=== PATIENT | female | born 1970 | race American Indian/Alaskan Native ===

== ENCOUNTER 2016-09-28 17:14 | Emergency (ER) | payer MEDICAID ==
[2016-09-28] MEDS ORDERED: NACL 0.9% 1000 ML 1,000 ML IV ONE (17:27)
[2016-09-28] MEDS ORDERED: DILAUDID IV ONE ×2 (17:56→20:28)
[2016-09-28] MEDS ORDERED: ZOFRAN IV ONE ×2 (17:56→20:28)
[2016-09-28 18:19] LABS: Anion Gap 20 mmol/L; Blood Urea Nitrogen 9 mg/dL (7-17); Calcium 9.2 mg/dL (8.4-10.2); Carbon Dioxide 24 mmol/L (22-30); Chloride 98.3 mmol/L (98-107); Glucose 130 mg/dL (65-100); Potassium 3.6 mmol/L (3.6-5.0); Sodium 139 mmol/L (137-145)
[2016-09-28 18:34] LABS: Basophils % (Auto) 0.2 % (0.0-1.8); Mean Corpuscular HGB Conc 30 % (30-34); Platelet Count 366 K/mm3 (140-440); Red Blood Count 4.88 M/mm3 (3.65-5.03); Red Cell Distribution Width 17.5 % (13.2-15.2); White Blood Count 6.8 K/mm3 (4.5-11.0)
[2016-09-28 18:50] LABS: Hemoglobin 9.8 gm/dl (10.1-14.3)
[2016-09-28 18:51] LABS: Hematocrit 32.6 % (30.3-42.9); Mean Corpuscular Hemoglobin 20 pg (28-32); Mean Corpuscular Volume 67 fl (79-97)
--- NOTE | 2016-09-28 19:34 | Cat Scan Report ---
FINAL REPORT PROCEDURE: CT ABDOMEN PELVIS WO CON TECHNIQUE: Computerized axial tomography of the abdomen and pelvis was performed without intravenous contrast. This study is performed without intravascular contrast material and its sensitivity for abdominal and pelvic pathology, including neoplasms, inflammation, abscess, free fluid, thrombosis, arterial dissection and infarction, is reduced compared with a contrast enhanced study. HISTORY: abd pain COMPARISON: CT exam dated February 11, 2016 FINDINGS: Liver and spleen display no abnormalities. Gallbladder has been removed. Pancreas appears normal. The adrenal glands and abdominal aorta are normal in size. No renal abnormality is seen. Mild hypoventilatory changes are seen at the lung bases. Bladder appears normal. No free pelvic fluid is seen. Changes of colitis are seen in the transverse and descending colon. Findings are probably from infectious colitis. Appendix is not seen but no pericecal inflammation is seen. No small bowel dilation is seen. No adnexal masses are seen. IMPRESSION: Changes of colitis are seen in the transverse and descending colon. Infectious colitis would be the most likely etiology.
--- NOTE | 2016-09-28 20:16 | Emergency Department Report ---
HPI - General Chief Complaint: Nausea/Vomiting/Diarrhea Time Seen by Provider: 09/28/16 17:55 - HPI HPI: Nausea vomiting diarrhea 46-year-old -Malag[place] female, presented to the ED with right upper quadrant pain, nausea, vomiting, diarrhea for 2 days. The patient is not taking any medication for symptoms. Patient denies any fever or chills or night sweats. Patient with history of a high blood pressure, has been compliant with medications. ED Past Medical Hx - Past Medical History Previous Medical History?: Yes Hx Hypertension: Yes Hx Dementia: No Additional medical history: Hypothyroidism s/p iodine tx for hyperthyroidism. Crohns colitis. Iron deficiency anemia - Surgical History Hx Cholecystectomy: Yes Hx Appendectomy: Yes Additional Surgical History: hysterectomy. fibroid tumor and cyst removed - Social History Smoking Status: Never Smoker Substance Use Type: None - Medications Home Medications: Home Medications Medication Instructions Recorded Confirmed Last Taken Type Levothyroxine [Synthroid] 150 mcg PO QDAY 06/21/13 12/31/15 10/29/14 History amLODIPine [Norvasc] 5 mg PO HS 06/21/13 12/31/15 10/28/14 History Ferrous Sulfate [Feosol 325 MG tab] 325 mg PO BID #60 tablet 05/12/14 12/31/15 Unknown Rx Cyclobenzaprine [Flexeril] 10 mg PO TID PRN #15 tablet 12/31/15 Unknown Rx Ibuprofen [Motrin] 800 mg PO Q8HR PRN #15 tablet 12/31/15 Unknown Rx Lisinopril/Hydrochlorothiazide 1 tab PO QDAY 12/31/15 12/31/15 Unknown History [Zestoretic 20-25 mg] Loperamide [Imodium] 2 mg PO Q6HR PRN #20 capsule 02/11/16 Unknown Rx Ondansetron [Zofran Odt] 4 mg PO Q8HR #20 tab.rapdis 02/11/16 Unknown Rx Oxycodone HCl/Acetaminophen 1 each PO Q6HR PRN #15 tablet 02/11/16 Unknown Rx [Percocet 10/325 mg] ED Review of Systems ROS: Stated complaint: ABD PAIN Other details as noted in HPI Comment: All other systems reviewed and negative Cardiovascular: as per HPI Gastrointestinal: abdominal pain, nausea Physical Exam - Physical Exam Vital Signs: Vital Signs 09/28/16 09/28/1617 17:24 18:10 19:16 Temperature 98.5 F Pulse Rate 120 H 78 Respiratory 20 20 Rate Blood Pressure 137/76 Blood Pressure 94/49 [Left] O2 Sat by Pulse 98 98 Oximetry 09/28/16 19:19 Temperature Pulse Rate Respiratory 20 Rate Blood Pressure Blood Pressure [Left] O2 Sat by Pulse 98 Oximetry Physical Exam: Vital signs reviewed Gen. alert and oriented 3 in no distress Head atraumatic normocephalic Eyes PERR LA EOMI Chest regular rate and rhythm normal S1-S2 lungs clear bilaterally Abdomen soft nondistended Back no point tenderness paravertebral tenderness Neuro no focal deficit. Psych normal mood. ED Course Vital Signs 09/28/16 09/28/16 09/28/16 17:24 18:10 19:16 Temperature 98.5 F Pulse Rate 120 H 78 Respiratory 20 20 Rate Blood Pressure 137/76 Blood Pressure 94/49 [Left] O2 Sat by Pulse 98 98 Oximetry 09/28/16 19:19 Temperature Pulse Rate Respiratory 20 Rate Blood Pressure Blood Pressure [Left] O2 Sat by Pulse 98 Oximetry ED Medical Decision Making - Lab Data Result diagrams: 09/28/16 17:37 09/28/16 17:37 Critical care attestation.: If time is entered above; I have spent that time in minutes in the direct care of this critically ill patient, excluding procedure time. ED Disposition Clinical Impression: Colitis Disposition: DC-01 TO HOME OR SELFCARE Is pt being admited?: No Does the pt Need Aspirin: No Condition: Stable Referrals: PRIMARY CARE [Primary Care Provider] - 3-5 Days
[2016-09-28 20:48] LABS: Bacteria,Urine 1+ /HPF (Negative); Bilirubin,Urine NEG (Negative); Blood,Urine MOD (Negative); Ketones,Urine NEG (Negative); Leukocyte Esterase,Urine SM (Negative); Mucus,Urine FEW /HPF; Nitrite,Urine NEG (Negative); Protein,Urine <15 mg/dL mg/dL (Negative); Urobilinogen,Urine < 2.0 mg/dL (<2.0)
[2016-09-28] MEDS ORDERED: FLAGYL/NS 1000 MG-200 ML 1,000 MG in VIAFLEX EMPTY CONTAINER 0 ML IV SCH (21:00)
[2016-09-28] MEDS ORDERED: TORADOL IV ONE (22:43)
[2016-09-29 00:56] VITALS: BP 104/52
== END 2016-09-29 01:17 | disposition home or self-care (01) ==
LOC: ED 17:14
DX: K52.9 Noninfective gastroenteritis and colitis, unspecified (principal); I10 Essential (primary) hypertension; E03.9 Hypothyroidism, unspecified; D50.9 Iron deficiency anemia, unspecified
CPT/HCPCS: 36415; 74176; 80048; 81001; 81025; 82962; 85025; 96361; 96365; 96366; 96375; 96376; 99284; J1170; J1885; J2405; J7030

== ENCOUNTER 2016-11-22 17:40 | Emergency (ER) | payer MEDICAID ==
[2016-11-22 20:09] VITALS: BP 125/77
[2016-11-22 20:29] LABS: Basophils % (Auto) 0.5 % (0.0-1.8); Eosinophils % (Auto) 0.1 % (0.0-4.3); Hemoglobin 8.9 gm/dl (10.1-14.3); Mean Corpuscular HGB Conc 29 % (30-34); Platelet Count 376 K/mm3 (140-440); Red Blood Count 4.53 M/mm3 (3.65-5.03); Red Cell Distribution Width 17.8 % (13.2-15.2); White Blood Count 5.3 K/mm3 (4.5-11.0)
[2016-11-22 20:30] LABS: Hematocrit 30.5 % (30.3-42.9); Mean Corpuscular Hemoglobin 20 pg (28-32); Mean Corpuscular Volume 67 fl (79-97)
[2016-11-22 20:51] LABS: Alanine Aminotransferase 17 units/L (7-56); Albumin 4.2 g/dL (3.9-5); Albumin/Globulin Ratio 1.2 %; Alkaline Phosphatase 80 units/L (35-129); Anion Gap 19 mmol/L; Bilirubin,Total < 0.20 mg/dL (0.1-1.2); Blood Urea Nitrogen 8 mg/dL (7-17); Carbon Dioxide 23 mmol/L (22-30); Chloride 104.7 mmol/L (98-107); Glucose 80 mg/dL (65-100); Lipase 33 units/L (13-60); Potassium 4.2 mmol/L (3.6-5.0); Sodium 142 mmol/L (137-145); Total Protein 7.8 g/dL (6.3-8.2)
[2016-11-22 21:52] LABS: Bilirubin,Urine NEG (Negative); Blood,Urine NEG (Negative); Ketones,Urine NEG (Negative); Leukocyte Esterase,Urine MOD (Negative); Mucus,Urine FEW /HPF; Nitrite,Urine NEG (Negative); Protein,Urine <15 mg/dL mg/dL (Negative); Urobilinogen,Urine < 2.0 mg/dL (<2.0)
== END 2016-11-22 20:22 | disposition left against medical advice (07) ==
LOC: ED 17:40
DX: R42 Dizziness and giddiness (principal); R10.9 Unspecified abdominal pain; Z53.21 Procedure and treatment not carried out due to patient leaving prior to being seen by health care provider
CPT/HCPCS: 36415; 80053; 81001; 83690; 85025

== ENCOUNTER 2016-11-24 11:46 | Emergency (ER) | payer MEDICAID ==
[2016-11-24 13:14] LABS: Bilirubin,Urine NEG (Negative); Blood,Urine NEG (Negative); Ketones,Urine NEG (Negative); Leukocyte Esterase,Urine TR (Negative); Mucus,Urine FEW /HPF; Nitrite,Urine NEG (Negative); Protein,Urine <15 mg/dL mg/dL (Negative); Urobilinogen,Urine < 2.0 mg/dL (<2.0); WBC,Urine < 1.0 /HPF (0.0-6.0)
[2016-11-24 13:44] LABS: Basophils % (Auto) 0.5 % (0.0-1.8); Hematocrit 29.7 % (30.3-42.9); Hemoglobin 8.9 gm/dl (10.1-14.3); Mean Corpuscular HGB Conc 30 % (30-34); Platelet Count 353 K/mm3 (140-440); Red Cell Distribution Width 17.5 % (13.2-15.2)
[2016-11-24 13:48] LABS: Mean Corpuscular Hemoglobin 20 pg (28-32); Mean Corpuscular Volume 66 fl (79-97)
[2016-11-24 13:54] LABS: Alanine Aminotransferase 14 units/L (7-56); Albumin 3.9 g/dL (3.9-5); Alkaline Phosphatase 80 units/L (35-129); Anion Gap 12 mmol/L; BUN/Creatinine Ratio 8.57; Blood Urea Nitrogen 6 mg/dL (7-17); Carbon Dioxide 26 mmol/L (22-30); Glucose 88 mg/dL (65-100); Potassium 4.4 mmol/L (3.6-5.0); Sodium 139 mmol/L (137-145)
[2016-11-24 15:14] LABS: Lipase 31 units/L (13-60)
[2016-11-24] MEDS ORDERED: NACL 0.9% 1000 ML 1,000 ML IV ONE (15:34)
[2016-11-24] MEDS ORDERED: ZOFRAN IV ONE (15:35)
--- NOTE | 2016-11-24 15:37 | Emergency Department Report ---
ED Abdominal Pain HPI - General Chief Complaint: Abdominal Pain Stated Complaint: a/c abd pain chrones dz Time Seen by Provider: 11/24/16 15:30 Source: patient Mode of arrival: Stretcher Limitations: No Limitations - History of Present Illness MD Complaint: abdominal pain -: Gradual, month(s) Location: diffuse Radiation: none Migration to: no migration Severity: mild Severity scale (0 -10): 6 Quality: cramping Improves With: nothing Worsens With: nothing Associated Symptoms: nausea, vomiting, diarrhea. denies: fever, chills, constipation, dysuria, hematemesis, hematochezia, melena, hematuria, anorexia, syncope (no bloody stool. no n/v in er today) - Related Data Home Medications Medication Instructions Recorded Confirmed Last Taken Levothyroxine [Synthroid] 150 mcg PO QDAY 06/21/13 12/31/15 10/29/14 amLODIPine [Norvasc] 5 mg PO HS 06/21/13 12/31/15 10/28/14 Lisinopril/Hydrochlorothiazide 1 tab PO QDAY 12/31/15 12/31/15 Unknown [Zestoretic 20-25 mg] Previous Rx's Medication Instructions Recorded Last Taken Type Ferrous Sulfate [Feosol 325 MG tab] 325 mg PO BID #60 tablet 05/12/14 Unknown Rx Cyclobenzaprine [Flexeril] 10 mg PO TID PRN #15 tablet 12/31/15 Unknown Rx Ibuprofen [Motrin] 800 mg PO Q8HR PRN #15 tablet 12/31/15 Unknown Rx Loperamide [Imodium] 2 mg PO Q6HR PRN #20 capsule 02/11/16 Unknown Rx Ondansetron [Zofran Odt] 4 mg PO Q8HR #20 tab.rapdis 02/11/16 Unknown Rx Oxycodone HCl/Acetaminophen 1 each PO Q6HR PRN #15 tablet 02/11/16 Unknown Rx [Percocet 10/325 mg] Dicyclomine [Bentyl] 20 mg PO QID #60 tablet 09/28/16 Unknown Rx Promethazine HCl [Promethazine TAB] 12.5 mg PO Q4H PRN #30 tablet 09/28/16 Unknown Rx metroNIDAZOLE [Flagyl TAB] 500 mg PO Q8HR #30 tablet 07/22/17 Unknown Rx HYDROcodone/APAP 10-325 [[place] 1 each PO BID PRN #12 tablet 11/24/16 Unknown Rx 10/325] metroNIDAZOLE [Flagyl] 500 mg PO Q8HR #30 tablet 11/24/16 Unknown Rx Allergies Allergy/AdvReac Type Severity Reaction Status Date / Time No Known Allergies Allergy Verified 02/10/16 15:22 ED Review of Systems ROS: Stated complaint: ABDOMINAL PAIN Other details as noted in HPI Comment: Unobtainable due to pts medical conditions Constitutional: no symptoms reported, see HPI. denies: chills, diaphoresis, fever Eyes: as per HPI. denies: eye pain ENT: as per HPI. denies: ear pain, throat pain Respiratory: no symptoms reported, see HPI. denies: cough, orthopnea Cardiovascular: as per HPI. denies: chest pain, palpitations, dyspnea on exertion, orthopnea Endocrine: no symptoms reported, see HPI. denies: excessive sweating, flushing , intolerance to cold, intolerance to heat Gastrointestinal: as per HPI, abdominal pain, nausea, vomiting, diarrhea. denies: constipation, hematemesis, melena, hematochezia Genitourinary: as per HPI. denies: urgency, dysuria Musculoskeletal: as per HPI. denies: back pain Skin: as per HPI. denies: rash, lesions Neurological: as per HPI. denies: headache, weakness Psychiatric: as per HPI. denies: anxiety, depression Hematological/Lymphatic: as per HPI. denies: easy bleeding ED Past Medical Hx - Past Medical History Hx Hypertension: Yes Hx CVA: No Hx Heart Attack/AMI: No Hx Congestive Heart Failure: No Hx Diabetes: No Hx Deep Vein Thrombosis: No Hx Pulmonary Embolism: No Hx GERD: No Hx Liver Disease: No Hx Renal Disease: No Hx of Cancer: No Hx Sickle Cell Disease: No Hx Arthritis: No Hx Headaches / Migraines: No Hx Seizures: No Hx Kidney Stones: No Hx Psychiatric Treatment: No Hx Asthma: No Hx COPD: No Hx Dementia: No Hx HIV: No Additional medical history: Hypothyroidism s/p iodine tx for hyperthyroidism. Crohns colitis. Iron deficiency anemia - Surgical History Hx Cholecystectomy: Yes Hx Appendectomy: Yes Additional Surgical History: hysterectomy. fibroid tumor and cyst removed - Social History Smoking Status: Never Smoker Substance Use Type: None - Medications Home Medications: Home Medications Medication Instructions Recorded Confirmed Last Taken Type Levothyroxine [Synthroid] 150 mcg PO QDAY 06/21/13 12/31/15 10/29/14 History amLODIPine [Norvasc] 5 mg PO HS 06/21/13 12/31/15 10/28/14 History Ferrous Sulfate [Feosol 325 MG tab] 325 mg PO BID #60 tablet 05/12/14 12/31/15 Unknown Rx Cyclobenzaprine [Flexeril] 10 mg PO TID PRN #15 tablet 12/31/15 Unknown Rx Ibuprofen [Motrin] 800 mg PO Q8HR PRN #15 tablet 12/31/15 Unknown Rx Lisinopril/Hydrochlorothiazide 1 tab PO QDAY 12/31/15 12/31/15 Unknown History [Zestoretic 20-25 mg] Loperamide [Imodium] 2 mg PO Q6HR PRN #20 capsule 02/11/16 Unknown Rx Ondansetron [Zofran Odt] 4 mg PO Q8HR #20 tab.rapdis 02/11/16 Unknown Rx Oxycodone HCl/Acetaminophen 1 each PO Q6HR PRN #15 tablet 02/11/16 Unknown Rx [Percocet 10/325 mg] Dicyclomine [Bentyl] 20 mg PO QID #60 tablet 09/28/16 Unknown Rx Promethazine HCl [Promethazine TAB] 12.5 mg PO Q4H PRN #30 tablet 09/28/16 Unknown Rx metroNIDAZOLE [Flagyl TAB] 500 mg PO Q8HR #30 tablet 09/28/16 Unknown Rx HYDROcodone/APAP 10-325 [[place] 1 each PO BID PRN #12 tablet 11/24/16 Unknown Rx 10/325] metroNIDAZOLE [Flagyl] 500 mg PO Q8HR #30 tablet 11/24/16 Unknown Rx ED Physical Exam - General Limitations: No Limitations General appearance: alert - Head Head exam: Present: atraumatic - Eye Eye exam: Present: normal appearance Pupils: Present: normal accommodation - ENT ENT exam: Present: mucous membranes moist - Neck Neck exam: Present: normal inspection - Respiratory Respiratory exam: Present: normal lung sounds bilaterally - Cardiovascular Cardiovascular Exam: Present: regular rate - GI/Abdominal GI/Abdominal exam: Present: soft, normal bowel sounds. Absent: distended, tenderness, guarding, rebound, rigid, diminished bowel sounds, hyperactive bowel sounds, hypoactive bowel sounds, organomegaly, mass, bruit, pulsatile mass - Rectal Rectal exam: Present: deferred - Extremities Exam Extremities exam: Present: normal inspection - Back Exam Back exam: Present: normal inspection - Neurological Exam Neurological exam: Present: alert, oriented X3, CN II-XII intact, normal gait - Psychiatric Psychiatric exam: Present: normal affect, normal mood - Skin Skin exam: Present: warm, dry, intact ED Course Vital Signs 11/24/16 11/24/16 11/24/16 11:52 15:33 18:35 Temperature 98.8 F 98.5 F 98 F Pulse Rate 82 70 74 Respiratory 18 14 18 Rate Blood Pressure 134/78 Blood Pressure 145/85 132/76 [Left] O2 Sat by Pulse 100 97 100 Oximetry 11/24/16 20:05 Temperature Pulse Rate Respiratory 16 Rate Blood Pressure Blood Pressure [Left] O2 Sat by Pulse Oximetry - Reevaluation(s) Reevaluation #1: to er w a/c colitis did not follow up w gi p last er visit diarrhea no blood out of her meds vss dc home w gi follow up. ED Medical Decision Making - Lab Data Result diagrams: 11/24/16 13:03 11/24/16 13:03 - Medical Decision Making vss no fever non toxic non ill appearing no [facility] medicated dc home w flagyl and outpt follow up out of her pain meds - Differential Diagnosis ro infection abd Critical care attestation.: If time is entered above; I have spent that time in minutes in the direct care of this critically ill patient, excluding procedure time. ED Disposition Clinical Impression: Colitis, Crohn's disease (regional enteritis) Disposition: DC-01 TO HOME OR SELFCARE Is pt being admited?: No Does the pt Need Aspirin: No Condition: Stable Instructions: Abdominal Pain (ED) Additional Instructions: fluids meds per routine ER will not write for local [employer] narcs. please see you MD and GI follow up GI as instructed today. diet as tolerated Prescriptions: HYDROcodone/APAP 10-325 [[place] 10/325] 1 each PO BID PRN #12 tablet PRN Reason: Pain metroNIDAZOLE [Flagyl] 500 mg PO Q8HR #30 tablet Referrals: MICHAEL HARDEN JR, MD [Primary Care Provider] - 3-5 Days Time of Disposition: 19:49
[2016-11-24] MEDS ORDERED: FLAGYL PO ONE (16:49)
[2016-11-24] MEDS ORDERED: MORPHINE IV ONE (18:17)
[2016-11-24 18:36] VITALS: BP 132/76
[2016-11-24] MEDS ORDERED: TYLENOL PO ONE (19:57)
[2016-11-24] MEDS ORDERED: TYLENOL ONE (20:02)
== END 2016-11-24 20:56 | disposition home or self-care (01) ==
LOC: ED 11:46
DX: K52.9 Noninfective gastroenteritis and colitis, unspecified (principal); K50.90 Crohn's disease, unspecified, without complications; I10 Essential (primary) hypertension; E03.9 Hypothyroidism, unspecified; Z90.49 Acquired absence of other specified parts of digestive tract; Z90.710 Acquired absence of both cervix and uterus
CPT/HCPCS: 36415; 80053; 81001; 83690; 85025; 96361; 96374; 96375; 99284; J2270; J2405; J7030

== ENCOUNTER 2017-03-12 10:32 | Emergency (ER) | payer MEDICAID ==
[2017-03-12 12:01] VITALS: BP 110/67
[2017-03-12] MEDS ORDERED: BABY ASPIRIN ONE (13:18)
--- NOTE | 2017-03-12 16:32 | Emergency Department Report ---
ED Lower Extremity HPI - General Chief Complaint: Extremity Injury, Lower Stated Complaint: LEG/FOOT PAIN Time Seen by Provider: 03/12/17 15:01 Source: patient Mode of arrival: Ambulatory Limitations: No Limitations - History of Present Illness Initial Comments: This is a 46-year-old female nontoxic, well nourished in appearance, no acute signs of distress presents to the ED with c/o of chronic intermittent left leg pain and foot pain and swelling. Patient denies any trauma to the region. Patient stated she follow up with her primary care doctor and received prednisone and symptoms subsided. Patient denies any calf pain, calf tenderness , fever, chills, nausea, vomiting, headache, stiff neck, chest pain, shortness of breath, difficulty breathing. MD Complaint: leg injury, foot injury -: month(s) Severity: mild Severity scale (0 -10): 8 Improves With: nothing Worsens With: nothing Associated Symptoms: swelling, able to partially bear weight, ambulatory. denies: snap/pop sensation, numbness, tingling, unable to bear weight - Related Data Home Medications Medication Instructions Recorded Confirmed Last Taken Levothyroxine [Synthroid] 150 mcg PO QDAY 06/21/13 12/31/15 10/29/14 amLODIPine [Norvasc] 5 mg PO HS 06/21/13 12/31/15 10/28/14 Lisinopril/Hydrochlorothiazide 1 tab PO QDAY 12/31/15 12/31/15 Unknown [Zestoretic 20-25 mg] Previous Rx's Medication Instructions Recorded Last Taken Type Ferrous Sulfate [Feosol 325 MG tab] 325 mg PO BID #60 tablet 05/12/14 Unknown Rx Cyclobenzaprine [Flexeril] 10 mg PO TID PRN #15 tablet 12/31/15 Unknown Rx Ibuprofen [Motrin] 800 mg PO Q8HR PRN #15 tablet 12/31/15 Unknown Rx Loperamide [Imodium] 2 mg PO Q6HR PRN #20 capsule 02/11/16 Unknown Rx Ondansetron [Zofran Odt] 4 mg PO Q8HR #20 tab.rapdis 02/11/16 Unknown Rx Oxycodone HCl/Acetaminophen 1 each PO Q6HR PRN #15 tablet 02/11/16 Unknown Rx [Percocet 10/325 mg] Dicyclomine [Bentyl] 20 mg PO QID #60 tablet 09/28/16 Unknown Rx Promethazine HCl [Promethazine TAB] 12.5 mg PO Q4H PRN #30 tablet 09/28/16 Unknown Rx metroNIDAZOLE [Flagyl TAB] 500 mg PO Q8HR #30 tablet 09/28/16 Unknown Rx HYDROcodone/APAP 10-325 [[place] 1 each PO BID PRN #12 tablet 11/24/16 Unknown Rx 10/325] metroNIDAZOLE [Flagyl] 500 mg PO Q8HR #30 tablet 11/24/16 Unknown Rx Ibuprofen [Motrin] 600 mg PO Q8H PRN #30 tablet 03/12/17 Unknown Rx predniSONE [Deltasone] 40 mg PO QDAY #5 tab 03/12/17 Unknown Rx Allergies Allergy/AdvReac Type Severity Reaction Status Date / Time No Known Allergies Allergy Verified 02/10/16 15:22 ED Review of Systems ROS: Stated complaint: LEG/FOOT PAIN Other details as noted in HPI Constitutional: denies: chills, fever Eyes: denies: eye pain, eye discharge, vision change ENT: denies: ear pain, throat pain Respiratory: denies: cough, shortness of breath, wheezing Cardiovascular: denies: chest pain, palpitations Endocrine: no symptoms reported Gastrointestinal: denies: abdominal pain, nausea, diarrhea Genitourinary: denies: urgency, dysuria, discharge Musculoskeletal: denies: back pain, joint swelling, arthralgia Skin: denies: rash, lesions Neurological: denies: headache, weakness, paresthesias Psychiatric: denies: anxiety, depression Hematological/Lymphatic: denies: easy bleeding, easy bruising ED Past Medical Hx - Past Medical History Previous Medical History?: Yes Hx Hypertension: Yes Hx CVA: No Hx Heart Attack/AMI: No Hx Congestive Heart Failure: No Hx Diabetes: No Hx Deep Vein Thrombosis: No Hx Pulmonary Embolism: No Hx GERD: No Hx Liver Disease: No Hx Renal Disease: No Hx Sickle Cell Disease: No Hx Arthritis: No Hx Headaches / Migraines: No Hx Seizures: No Hx Kidney Stones: No Hx Psychiatric Treatment: No Hx Asthma: No Hx COPD: No Hx Dementia: No Hx HIV: No Additional medical history: Hypothyroidism s/p iodine tx for hyperthyroidism. Crohns colitis. Iron deficiency anemia - Surgical History Past Surgical History?: Yes Hx Cholecystectomy: Yes Hx Appendectomy: Yes Additional Surgical History: hysterectomy. fibroid tumor and cyst removed - Social History Smoking Status: Former Smoker Substance Use Type: Prescribed - Medications Home Medications: Home Medications Medication Instructions Recorded Confirmed Last Taken Type Levothyroxine [Synthroid] 150 mcg PO QDAY 06/21/13 12/31/15 10/29/14 History amLODIPine [Norvasc] 5 mg PO HS 06/21/13 12/31/15 10/28/14 History Ferrous Sulfate [Feosol 325 MG tab] 325 mg PO BID #60 tablet 05/12/14 12/31/15 Unknown Rx Cyclobenzaprine [Flexeril] 10 mg PO TID PRN #15 tablet 12/31/15 Unknown Rx Ibuprofen [Motrin] 800 mg PO Q8HR PRN #15 tablet 12/31/15 Unknown Rx Lisinopril/Hydrochlorothiazide 1 tab PO QDAY 12/31/15 12/31/15 Unknown History [Zestoretic 20-25 mg] Loperamide [Imodium] 2 mg PO Q6HR PRN #20 capsule 02/11/16 Unknown Rx Ondansetron [Zofran Odt] 4 mg PO Q8HR #20 tab.rapdis 02/11/16 Unknown Rx Oxycodone HCl/Acetaminophen 1 each PO Q6HR PRN #15 tablet 02/11/16 Unknown Rx [Percocet 10/325 mg] Dicyclomine [Bentyl] 20 mg PO QID #60 tablet 09/28/16 Unknown Rx Promethazine HCl [Promethazine TAB] 12.5 mg PO Q4H PRN #30 tablet 09/28/16 Unknown Rx metroNIDAZOLE [Flagyl TAB] 500 mg PO Q8HR #30 tablet 09/28/16 Unknown Rx HYDROcodone/APAP 10-325 [[place] 1 each PO BID PRN #12 tablet 11/24/16 Unknown Rx 10/325] metroNIDAZOLE [Flagyl] 500 mg PO Q8HR #30 tablet 11/24/16 Unknown Rx Ibuprofen [Motrin] 600 mg PO Q8H PRN #30 tablet 03/12/17 Unknown Rx predniSONE [Deltasone] 40 mg PO QDAY #5 tab 03/12/17 Unknown Rx ED Physical Exam - General Limitations: No Limitations General appearance: alert, in no apparent distress - Head Head exam: Present: atraumatic, normocephalic - Eye Eye exam: Present: normal appearance Pupils: Present: normal accommodation - ENT ENT exam: Present: normal exam, normal orophraynx, mucous membranes moist, TM's normal bilaterally, normal external ear exam - Neck Neck exam: Present: normal inspection, full ROM. Absent: tenderness, meningismus, lymphadenopathy, thyromegaly - Respiratory Respiratory exam: Present: normal lung sounds bilaterally. Absent: respiratory distress, wheezes, rales, rhonchi, stridor, chest wall tenderness, accessory muscle use, decreased breath sounds, prolonged expiratory - Cardiovascular Cardiovascular Exam: Present: regular rate, normal rhythm, normal heart sounds. Absent: bradycardia, tachycardia, irregular rhythm, systolic murmur, diastolic murmur, rubs, gallop - GI/Abdominal GI/Abdominal exam: Present: soft, normal bowel sounds. Absent: distended, tenderness, guarding, rebound, rigid, diminished bowel sounds - Extremities Exam Extremities exam: Present: normal inspection, full ROM, normal capillary refill. Absent: tenderness, pedal edema, joint swelling, calf tenderness - Expanded Lower Extremity Exam Left Hip exam: Present: normal inspection, full ROM, external rotation, internal rotation, pelvic stability. Absent: tenderness, swelling, abrasion, laceration , ecchymosis, deformity, crepidus, dislocation, erythema, shortening Upper Leg exam: Present: normal inspection, full ROM. Absent: tenderness, swelling, abrasion, laceration, ecchymosis, deformity, crepidus, dislocation, erythema Knee exam: Present: normal inspection, full ROM, full knee extension. Absent: tenderness, swelling, abrasion, laceration, ecchymosis, deformity, crepidus, dislocation, erythema, effusion, pain w/ pronation/supination, posterior draw sign, pain/laxity with valgus, pain/laxity with varus Lower Leg exam: Present: normal inspection, full ROM. Absent: tenderness, swelling, abrasion, laceration, ecchymosis, deformity, crepidus, dislocation, erythema, palpable cord, Peg's sign Ankle exam: Present: normal inspection, full ROM, tenderness, swelling. Absent : abrasion, laceration, ecchymosis, deformity, crepidus, dislocation, erythema, anterior draw sign Foot/Toe exam: Present: normal inspection, full ROM, tenderness, swelling. Absent: abrasion, laceration, ecchymosis, deformity, crepidus, dislocation, erythema, amputation, puncture wound, foreign body, calcaneal tenderness, tenderness at base of 5th metatarsal, nail avulsion, subungual hematoma Neuro vascular tendon exam: Present: no vascular compromise. Absent: pulse deficit, abnormal cap refill, motor deficit, sensory deficit, tendon deficit, extremity cold to touch, pallor, abnormal 2-point discrimination, foot drop, peroneal nerve deficit, significant pain with passive ROM of distal joint Gait: Positive: observed and limited by pain - Back Exam Back exam: Present: normal inspection, full ROM. Absent: tenderness, CVA tenderness (R), CVA tenderness (L), muscle spasm, paraspinal tenderness, vertebral tenderness, rash noted - Neurological Exam Neurological exam: Present: alert, oriented X3, CN II-XII intact, normal gait, reflexes normal - Psychiatric Psychiatric exam: Present: normal affect, normal mood - Skin Skin exam: Present: warm, dry, intact, normal color. Absent: rash ED Course Vital Signs 03/12/17 11:57 Temperature 98.6 F Pulse Rate 71 Respiratory 20 Rate Blood Pressure 110/67 O2 Sat by Pulse 98 Oximetry - Reevaluation(s) Reevaluation #1: 03/12/17 16:43 Patient is speaking in full sentences with no signs of distress noted. ED Lower Extremity MDM - Medical Decision Making This a 46-year-old female that presents with leg pain and left foot swelling. Patient is stable and was examined by me. Doppler has been obtained with a preliminary report negative for DVTs. I ordered an x-ray to rule out stress fracture but patient states she has to go home. Patient refused x-ray and she was be treated with prednisone as this helped her previously. I instructed her notified patient of my concerns that further evaluation the patient signed AMA and wanted to leave. Patient received prednisone and Solu-Medrol. Patient seen Motrin discharge. Patient signed AMA form. Patient was instructed Follow- up with a primary care doctor in 3-5 days or if symptoms worsen and continue return to emergency room as soon as possible. At time time of signing AMA form , the patient does not seem toxic or ill in appearance. No acute signs of distress noted. Patient agrees to the treatment plan of care. No further questions noted by the patient. Critical care attestation.: If time is entered above; I have spent that time in minutes in the direct care of this critically ill patient, excluding procedure time. ED Disposition Clinical Impression: Left leg pain, Foot swelling Disposition: LEFT AGAINST MED ADVICE Is pt being admited?: No Does the pt Need Aspirin: No Condition: Stable Instructions: Ibuprofen (By mouth), Prednisone (By mouth), RICE Therapy (ED) Additional Instructions: Follow-up with a primary care doctor in 3-5 days or if symptoms worsen and continue return to emergency room as soon as possible. Prescriptions: Ibuprofen [Motrin] 600 mg PO Q8H PRN #30 tablet PRN Reason: Pain predniSONE [Deltasone] 40 mg PO QDAY #5 tab Referrals: PRIMARY CAREMD [Primary Care Provider] - 3-5 Days HOLLIE REECE MD [Staff Physician] - 3-5 Days [facility] [Outside] - 3-5 Days [facility] [Outside] - 3-5 Days Forms: AMA Form
--- NOTE | 2017-03-13 08:41 | Vascular Lab Report ---
Left Lower Extremity Venous Duplex Study: Reason for Exam: Pain and swelling of the left lower extremity. Comments on the Right: A limited duplex study was done of the proximal veins of the right lower extremity. All veins visualized are freely compressible without evidence of internal echogenicity. Flow is spontaneous and phasic throughout. No evidence of acute or chronic thrombus is seen in any of the vessels visualized. Comments on the Left: All veins visualized are freely compressible without evidence of internal echogenicity. Flow is spontaneous and phasic throughout. No evidence of acute or chronic thrombus is seen in any of the vessels visualized. There are soft tissue change in the left knee area most compatible with an effusion or Jernigan's cyst. Impression: No evidence of acute or chronic deep venous thrombosis in the left lower extremity.
== END 2017-03-12 16:46 | disposition left against medical advice (07) ==
LOC: ED 10:32
DX: M79.605 Pain in left leg (principal); M79.89 Other specified soft tissue disorders; I10 Essential (primary) hypertension; E05.90 Thyrotoxicosis, unspecified without thyrotoxic crisis or storm; Z87.891 Personal history of nicotine dependence
CPT/HCPCS: 93971; 96372; 99282; J2930

== ENCOUNTER 2017-06-26 00:59 | Emergency (ER) | payer MEDICAID ==
[2017-06-26 01:05] VITALS: BP 121/88
[2017-06-26 02:03] LABS: Hematocrit 28.9 % (30.3-42.9); Mean Corpuscular HGB Conc 31 % (30-34); Platelet Count 336 K/mm3 (140-440); Red Blood Count 4.48 M/mm3 (3.65-5.03)
[2017-06-26 02:05] LABS: Mean Corpuscular Hemoglobin 20 pg (28-32); Mean Corpuscular Volume 65 fl (79-97)
[2017-06-26 02:33] LABS: Alanine Aminotransferase 23 units/L (7-56); Albumin 3.9 g/dL (3.9-5); BUN/Creatinine Ratio 14; Blood Urea Nitrogen 14 mg/dL (7-17); Calcium 8.3 mg/dL (8.4-10.2); Hemolysis Index 6
[2017-06-26 03:03] LABS: Anisocytosis 2+; Basophils % (Manual) 0 % (0.0-1.8); Eosinophils % (Manual) 0 % (0.0-4.3); Hypochromasia 2+; Platelet Estimate Consistent w Auto; Total Cells Counted 100
[2017-06-26 03:38] LABS: Bacteria,Urine 1+ /HPF (Negative); Bilirubin,Urine NEG (Negative); Blood,Urine NEG (Negative); Color,Urine Yellow (Yellow); Hyaline Casts,Urine 4 /LPF; Mucus,Urine FEW /HPF; Protein,Urine <15 mg/dL mg/dL (Negative)
[2017-06-26] MEDS ORDERED: NACL 0.9% 1000 ML 1,000 ML IV ONE (07:04)
[2017-06-26] MEDS ORDERED: ZOFRAN IV ONE (07:04)
[2017-06-26] MEDS ORDERED: BENTYL IM ONE (07:08)
--- NOTE | 2017-06-26 07:10 | Emergency Department Report ---
ED Abdominal Pain HPI - General Chief Complaint: Abdominal Pain Stated Complaint: ABD PAIN Time Seen by Provider: 06/26/17 06:48 Source: patient Mode of arrival: Ambulatory Limitations: No Limitations - History of Present Illness Initial Comments: Patient with history of Crohn's she's had multiple surgeries including cholecystectomy and appendectomy and hysterectomy, patient is here with diffuse abdominal pain into the back she thinks it is worse with her movement not sure of his urinary related. She denies tearing pain denies any hypotension denies any nausea vomiting diarrhea denies any fever she says her Crohn's seems to be okay but is having back and abdominal pain past medical history is significant for Crohn's chronic iron deficiency anemia MD Complaint: abdominal pain, flank pain, other (back pain) -: days(s) Location: diffuse, R flank Radiation: back Migration to: no migration Severity: mild, moderate Quality: cramping, aching Consistency: intermittent Worsens With: nothing Associated Symptoms: denies other symptoms, dysuria. denies: nausea, vomiting, diarrhea, fever, chills, constipation, hematemesis, hematochezia, melena, hematuria, anorexia, syncope - Related Data Home Medications Medication Instructions Recorded Confirmed Last Taken Levothyroxine [Synthroid] 150 mcg PO QDAY 06/21/13 12/31/15 10/29/14 amLODIPine [Norvasc] 5 mg PO HS 06/21/13 12/31/15 10/28/14 Lisinopril/Hydrochlorothiazide 1 tab PO QDAY 12/31/15 12/31/15 Unknown [Zestoretic 20-25 mg] Previous Rx's Medication Instructions Recorded Last Taken Type Ferrous Sulfate [Feosol 325 MG tab] 325 mg PO BID #60 tablet 05/12/14 Unknown Rx Cyclobenzaprine [Flexeril] 10 mg PO TID PRN #15 tablet 12/31/15 Unknown Rx Ibuprofen [Motrin] 800 mg PO Q8HR PRN #15 tablet 12/31/15 Unknown Rx Loperamide [Imodium] 2 mg PO Q6HR PRN #20 capsule 02/11/16 Unknown Rx Ondansetron [Zofran Odt] 4 mg PO Q8HR #20 tab.rapdis 02/11/16 Unknown Rx Oxycodone HCl/Acetaminophen 1 each PO Q6HR PRN #15 tablet 02/11/16 Unknown Rx [Percocet 10/325 mg] Dicyclomine [Bentyl] 20 mg PO QID #60 tablet 09/28/16 Unknown Rx Promethazine HCl [Promethazine TAB] 12.5 mg PO Q4H PRN #30 tablet 09/28/16 Unknown Rx metroNIDAZOLE [Flagyl TAB] 500 mg PO Q8HR #30 tablet 09/28/16 Unknown Rx HYDROcodone/APAP 10-325 [Sherman 1 each PO BID PRN #12 tablet 11/24/16 Unknown Rx 10/325] metroNIDAZOLE [Flagyl] 500 mg PO Q8HR #30 tablet 11/24/16 Unknown Rx Ibuprofen [Motrin] 600 mg PO Q8H PRN #30 tablet 03/12/17 Unknown Rx predniSONE [Deltasone] 40 mg PO QDAY #5 tab 03/12/17 Unknown Rx Allergies Allergy/AdvReac Type Severity Reaction Status Date / Time No Known Allergies Allergy Verified 02/10/16 15:22 ED Review of Systems ROS: Stated complaint: ABD PAIN Other details as noted in HPI Comment: All other systems reviewed and negative Constitutional: denies: diaphoresis, fever, malaise ENT: denies: dental pain, hearing loss, epistaxis Respiratory: denies: shortness of breath, SOB with exertion, SOB at rest, stridor Cardiovascular: denies: chest pain, palpitations, dyspnea on exertion, orthopnea Gastrointestinal: abdominal pain. denies: diarrhea, constipation, hematemesis, melena, hematochezia Neurological: denies: headache, weakness, numbness, paresthesias, confusion, abnormal gait, vertigo ED Past Medical Hx - Past Medical History Previous Medical History?: Yes Hx Hypertension: Yes Hx CVA: No Hx Heart Attack/AMI: No Hx Congestive Heart Failure: No Hx Diabetes: No Hx Deep Vein Thrombosis: No Hx Pulmonary Embolism: No Hx GERD: No Hx Liver Disease: No Hx Renal Disease: No Hx Sickle Cell Disease: No Hx Arthritis: No Hx Headaches / Migraines: No Hx Seizures: No Hx Kidney Stones: No Hx Psychiatric Treatment: No Hx Asthma: No Hx COPD: No Hx Dementia: No Hx HIV: No Additional medical history: Hypothyroidism s/p iodine tx for hyperthyroidism. Crohns colitis. Iron deficiency anemia - Surgical History Past Surgical History?: Yes Hx Cholecystectomy: Yes Hx Appendectomy: Yes Additional Surgical History: hysterectomy. fibroid tumor and cyst removed - Social History Smoking Status: Never Smoker Substance Use Type: None - Medications Home Medications: Home Medications Medication Instructions Recorded Confirmed Last Taken Type Levothyroxine [Synthroid] 150 mcg PO QDAY 06/21/13 12/31/15 10/29/14 History amLODIPine [Norvasc] 5 mg PO HS 06/21/13 12/31/15 10/28/14 History Ferrous Sulfate [Feosol 325 MG tab] 325 mg PO BID #60 tablet 05/12/14 12/31/15 Unknown Rx Cyclobenzaprine [Flexeril] 10 mg PO TID PRN #15 tablet 12/31/15 Unknown Rx Ibuprofen [Motrin] 800 mg PO Q8HR PRN #15 tablet 12/31/15 Unknown Rx Lisinopril/Hydrochlorothiazide 1 tab PO QDAY 12/31/15 12/31/15 Unknown History [Zestoretic 20-25 mg] Loperamide [Imodium] 2 mg PO Q6HR PRN #20 capsule 02/11/16 Unknown Rx Ondansetron [Zofran Odt] 4 mg PO Q8HR #20 tab.rapdis 02/11/16 Unknown Rx Oxycodone HCl/Acetaminophen 1 each PO Q6HR PRN #15 tablet 02/11/16 Unknown Rx [Percocet 10/325 mg] Dicyclomine [Bentyl] 20 mg PO QID #60 tablet 09/28/16 Unknown Rx Promethazine HCl [Promethazine TAB] 12.5 mg PO Q4H PRN #30 tablet 09/28/16 Unknown Rx metroNIDAZOLE [Flagyl TAB] 500 mg PO Q8HR #30 tablet 09/28/16 Unknown Rx HYDROcodone/APAP 10-325 [[place]man 1 each PO BID PRN #12 tablet 11/24/16 Unknown Rx 10/325] metroNIDAZOLE [Flagyl] 500 mg PO Q8HR #30 tablet 11/24/16 Unknown Rx Ibuprofen [Motrin] 600 mg PO Q8H PRN #30 tablet 03/12/17 Unknown Rx predniSONE [Deltasone] 40 mg PO QDAY #5 tab 03/12/17 Unknown Rx ED Physical Exam - General Limitations: No Limitations General appearance: alert, in no apparent distress, anxious - Head Head exam: Present: atraumatic, normocephalic - Eye Eye exam: Present: PERRL, EOMI - ENT ENT exam: Present: normal exam, normal orophraynx - Neck Neck exam: Present: normal inspection. Absent: tenderness, meningismus - Respiratory Respiratory exam: Present: normal lung sounds bilaterally. Absent: respiratory distress, wheezes, rales, rhonchi, stridor, accessory muscle use, decreased breath sounds - Cardiovascular Cardiovascular Exam: Present: regular rate, normal rhythm, other (pulses equal) - GI/Abdominal GI/Abdominal exam: Present: soft, tenderness. Absent: guarding, rebound, rigid , mass, pulsatile mass - Extremities Exam Extremities exam: Present: normal capillary refill. Absent: pedal edema, joint swelling, calf tenderness - Back Exam Back exam: Present: normal inspection, CVA tenderness (L), muscle spasm, paraspinal tenderness. Absent: vertebral tenderness - Neurological Exam Neurological exam: Present: alert, oriented X3, CN II-XII intact. Absent: motor sensory deficit ED Course Vital Signs 06/26/17 06/26/17 00:59 05:17 Temperature 98.9 F Pulse Rate 97 H Respiratory 18 20 Rate Blood Pressure 121/88 O2 Sat by Pulse 96 98 Oximetry ED Medical Decision Making - Lab Data Result diagrams: 06/26/17 01:38 06/26/17 01:38 - Radiology Data Radiology results: report reviewed - Medical Decision Making Labs unremarkable except for likely UTI. CT no acute process. Symptoms are likely related to UTI was some mechanical muscle pain as well. No acute abdomen at this time. Outpatient follow-up Critical care attestation.: If time is entered above; I have spent that time in minutes in the direct care of this critically ill patient, excluding procedure time. ED Disposition Clinical Impression: UTI (urinary tract infection), Back pain Disposition: -01 TO HOME OR SELFCARE Is pt being admited?: No Condition: Stable Instructions: Abdominal Pain (ED), Back Pain (ED) Additional Instructions: Return immediately if normal or alarming symptoms or call [phone] Referrals: MICHAEL HARDEN JR, MD [Primary Care Provider] - 3-5 Days Time of Disposition: 09:03
--- NOTE | 2017-06-26 07:54 | XRay Report ---
ROUTINE CHEST, TWO VIEWS: HISTORY: Cough, shortness of breath, back pain. The trachea, heart, mediastinal contour, lung matta and bony thorax are unremarkable. Mild thoracic spondylosis is noted. No obvious bony fracture on x-ray. IMPRESSION: Unremarkable chest x-ray.
--- NOTE | 2017-06-26 08:00 | Cat Scan Report ---
FINAL REPORT EXAM: CT ABDOMEN PELVIS WO CON HISTORY: flank pain TECHNIQUE: CT images obtained through the Abdomen and Pelvis without contrast. Transaxial,coronal and sagittal reformats are provided. PRIORS: CT 09/28/2016 FINDINGS: Imaged intrathoracic contents are unremarkable. Kidneys are normal in size, axis and position. No hydronephrosis or nephrolithiasis. The ureters are normal in course and caliber. No stones are seen within the urinary bladder. The liver, pancreas, spleen, and adrenal glands demonstrate an unremarkable noncontrast appearance. Prior cholecystectomy. Hollow enteric organs are normal in course and caliber. High density material is seen within the colon. Appendix is not visualized and there are no inflammatory findings in the right lower quadrant. No intra-abdominal free air/fluid or lymphadenopathy. Aorta is normal in course and caliber. Superficial soft tissues are unremarkable. No acute or aggressive appearing skeletal findings. IMPRESSION: No CT evidence of obstructive urolithiasis or other acute abdominal or pelvic findings.
[2017-06-26] MEDS ORDERED: NORCO 7.5/325 PO ONE (09:44)
== END 2017-06-26 09:57 | disposition home or self-care (01) ==
LOC: ED 00:59
DX: N39.0 Urinary tract infection, site not specified (principal); M54.9 Dorsalgia, unspecified; I10 Essential (primary) hypertension
CPT/HCPCS: 36415; 71046; 74176; 80053; 81001; 85007; 85025; 87086; 96361; 96372; 96374; 99284; J0500; J2405; J7030